=== PATIENT | female | born 1975 | race Caucasian/White ===

== ENCOUNTER 2019-08-01 11:48 | Emergency (ER) | payer MEDICARE, OTHER, SELFPAY ==
[2019-08-01 11:49] VITALS: BP 103/81; PULSE 105; RESP 20; TEMP 36.6; O2SAT 96; BMI 31.0
--- NOTE | 2019-08-01 11:52 | RAD_ITS ---
STUDY: X-RAY CHEST REASON FOR EXAM: Female, 43 years old. HEMOPTYSIS X1 DAY, SHORTNESS OF BREATH, HISTORY OF DOUBLE MASTECTOMY, HISTORY OF MULTIPLE PULMONARY EMBOLISMS. TECHNIQUE: PA and lateral views of the chest. COMPARISON: None. FINDINGS: There is mild peripheral right upper lung groundglass increased opacity. There is no demonstrated pleural abnormality. Normal size heart. Normal mediastinum and concepción. Normal visualized pulmonary arteries. Normal visualized aortic arch and descending thoracic aorta. Normal visualized thoracic spine. Normal visualized ribs, clavicles, and shoulders. There is no demonstrated abnormality of the visualized soft tissue structures of the upper abdomen. RAD/Chest PA and Lateral IMPRESSION: Right upper lung infiltrate. Electronically Signed: Per Morgan MD at 12:15 EST , Service support ,
--- NOTE | 2019-08-01 12:56 | ED.VISSUMM ---
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 Patient states she had URI symptoms for the last 3 weeks. States is getting worse. Now she is having green productive sputum with small bloodstained sputum. No severe shortness of breath or chest pain. She also has a history of diabetes and coronary disease and polycythemia. Physical Examination: Middle-aged female no acute distress vital signs stable and afebrile. H EENT exam unremarkable. Neck nontender no lymphadenopathy. Lungs clear to auscultation bilaterally. No rhonchi or rales. Heart regular rhythm no murmur rate about 100. Abdomen soft nontender normal bowel sounds no peritoneal signs. Extremities moves all 4. Calves nontender without edema or cords. Neurologically she is awake alert without any focal motor deficits. Test Results: X-ray obtained AP lateral views. Read by myself as no acute abnormality. Radiologist question upper lobe infiltrate which I clinically do not see. Emergency Department Course and Treatment: Patient and family. She has been battling this for 3 weeks. Seems to be getting worse. We will try a course of antibiotics and see if she improves. Treatment Plan: Z-Jesús. Follow-up with your PCP. Stop smoking. Return if worse. Disposition: Discharge Impression: Acute bronchitis Anticoagulated on Xarelto for history of pulmonary emboli History of diabetes This note was generated with [employer] perfect dictation software. It may contain incorrect words, spelling, and punctuation that were not noted in review of the chart prior to signing
--- NOTE | 2019-08-01 12:59 | ED.DEP ---
ED Disposition - Plan for ED Patient: Disposition: Home or Assisted Living Instructions: BRONCHITIS, Antiobiotic Treatment (Adult) Prescriptions: Azithromycin [Zithromax Z-Macy] 250 mg PO UD #1 box Prescription Printed Additional Instructions: Follow-up with your doctor in a week if not improving. Return if worse. Zithromax Z-MACY as antibiotic. Absolutely stop smoking !!
== END 2019-08-01 13:24 | disposition home or self-care (01) ==
LOC: ED 13:17
PROVIDERS: Emergency Provider Emergency Medicine; PCP Family Medicine; Referring Provider Family Medicine
DX: J20.9 Acute bronchitis, unspecified (principal); E11.9 Type 2 diabetes mellitus without complications; I25.10 Atherosclerotic heart disease of native coronary artery without angina pectoris; D68.51 Activated protein C resistance; Z79.01 Long term (current) use of anticoagulants; Z86.711 Personal history of pulmonary embolism; Z72.0 Tobacco use
CPT/HCPCS: 71046; 99282